=== PATIENT | male | born 1945 | race Caucasian/White ===

== ENCOUNTER 2025-03-12 | Inpatient (IN) | payer OTHER ==
[~2025-03-12] VITALS: Wt 96.4 kg
[2025-03-12 00:07] VITALS: BP 136/85
[2025-03-12] MEDS ORDERED: Polyethylene Glycol 3350 17 gm PO PRN (02:00)
[2025-03-12] MEDS ORDERED: Latanoprost 0.005% Opth Soln 2.5 ML RIGHTEYE SCH (02:00)
[2025-03-12] MEDS ORDERED: Dorzolamide/Timolol Opth Soln 10 ML RIGHTEYE SCH (02:00)
[2025-03-12] MEDS ORDERED: Polyethylene Glycol 3350 17 gm PO ONE (02:00)
--- NOTE | 2025-03-12 02:36 | NUR ---
PT WAS A DIRECT ADMIT FROM [facility] AND ARRIVED TO ROOM 364 AT 2355. OIL SEAL ASSEMBLER'S (GWENDOLYN RECINOS AND HIMANSHU TOBAR) ORIENTED PT TO ROOM AND CALL SYSTEM. PT ARRIVED W/CHEST TUBE TO L.LOBE THAT WAS TEMPORARILY OPENED TO GRAVITY BEFORE CLAMPING AGAIN UPON INSTRUCTION OF RESIDENT AND MD (). 640 MLS PURULENT NEW/YELLOW OUTPUT OBTAINED. HE WAS PLACED ON TELEMETRY AND IS NSR W/BBB AT 60'S BPM. CONT BIOX MONITORING COMMENCED AND SPO2 IS WNL ON RA. MD'S ROUNDED UPON ADMIT AND ORDERS WERE RECEIVED. ADMISSION COMPLETED BY GWENDOLYN RECINOS AND THIS RN ASSUMED CARE OF PT AT 0200. I AGREE TO HER ASSESSMENT FINDINGS AND PT IS RESTING COMFORTABLE W/O S/S DISTRESS AT THIS TIME.
[2025-03-12] MEDS ORDERED: Latanoprost 0.005% Opth Soln 2.5 ML BOTHEYES SCH (02:53)
[2025-03-12] MEDS ORDERED: Lopressor 25 mg25 MG PO (03:34)
[2025-03-12] MEDS ORDERED: ZOCOR20 MG PO (03:35)
[2025-03-12] MEDS ORDERED: LATA.005SO BOTHEYES (03:35)
[2025-03-12] MEDS ORDERED: TIMDOROPSO RIGHTEYE (03:36)
[2025-03-12] MEDS ORDERED: FURO20 PO (03:37)
[2025-03-12 04:50] VITALS: BP 113/61
[2025-03-12 04:51] LABS: BASOPHILS ABSOLUTE AUTO 0.04 K/mm3 (0.00-0.23); BASOPHILS PERCENT AUTO 0 % (0-2); EOSINOPHILS ABSOLUTE AUTO 0.05 K/mm3 (0.00-0.68); EOSINOPHILS PERCENT AUTO 0 % (0-6); Hematocrit 45.5 % (37.0-53.0); Hemoglobin 15.5 g/dL (13.5-17.5); IMMATURE GRAN ABSOLUTE AUTO 0.03 K/mm3 (0.00-0.10); IMMATURE GRAN PERCENT AUTO 0 % (0-1); LYMPHOCYTES ABSOLUTE AUTO 1.98 K/mm3 (0.84-5.20); LYMPHOCYTES PERCENT AUTO 17 % (21-46); MONOCYTES ABSOLUTE AUTO 1.15 K/mm3 (0.16-1.47); MONOCYTES PERCENT AUTO 10 % (4-13); Mean Corpuscular HGB Conc 34.1 g/dL (31.5-36.5); Mean Corpuscular Volume 96 fL (80-100); NEUTROPHILS ABSOLUTE AUTO 8.76 K/mm3 (1.96-9.15); NEUTROPHILS PERCENT AUTO 73 % (41-73); NRBC ABSOLUTE 0.00 K/mm3 (0.00-0.02); NRBC Auto 0.0 /100 WBC (0.0-0.2); Platelet Count 230 K/mm3 (150-400); RDW Coefficient Variation 12.1 % (11.7-14.2); RDW Standard Deviation 42.9 fL (35.1-46.3)
[2025-03-12 05:01] LABS: Alanine Aminotransfer (ALT/SGP 40.0 U/L (12-78); Albumin, Blood 2.8 g/dL (3.4-5.0); Albumin/Globulin Ratio 0.7 (0.8-1.8); Anion Gap 6.0 mmol/L (3-11); Aspartate Aminotrans (AST/SGOT 29.0 U/L (12-37); Bilirubin, Total 0.5 mg/dL (0.1-1.0); Blood Urea Nitrogen 21.0 mg/dL (8-24); CO2, Blood 31.0 mmol/L (21-32); Calcium, Blood 8.0 mg/dL (8.5-10.1); Chloride, Blood 109.0 mmol/L (98-108); Creatinine, Blood 0.65 mg/dL (0.60-1.20); Globulin, Blood 4.1 g/dL (2.2-4.0); Glucose, Blood 127.0 mg/dL (70-99); Potassium, Blood 3.8 mmol/L (3.5-5.5); Sodium, Blood 142.0 mmol/L (136-145); Total Protein, Blood 6.9 g/dL (6.4-8.2)
--- NOTE | 2025-03-12 07:15 | NUR ---
SUMMARY: PT A/OX4, CALLS APPROPRIATELY TO SPECIFY NEEDS AND IS PLEASANT AND COOPERATIVE W/CARE. HE ARRIVED FROM [facility] W/A CHEST TUBE PRESENT TO HIS L.LOBE PLACED FOR L.PLEURAL EFFUSION. RESIDENT TEMPORARILY OPENED TUBE TO GRAVITY AND APPROX 700 MLS YELLOW/RUST PURULENT OUTPUT WAS OBSERVED PRIOR TO CLAMPING IT AGAIN. SPECIMENS STILL NEED COLLECTED, DAY RN IS AWARE. PULM CONSULT CALLED TO ANS.SERVICE AND HOSPITALIST INSTRUCTED RN TO KEEP CHEST TUBE CLAMPED PENDING CONSULT. TYLENOL WAS RECEIVED PRN FOR TOLERABLE RELIEF OF "LUNG PAIN W/DEEP BREATHS". LS ARE ABSENT TO L.LOWER LOBE, DIMINSHED TO L.UPPER LOBE AND CLEAR T/O R.LOBES. RESPS ARE SHALLOW BUT E/U AND SPO2 IS WNL ON RA. HE'S REMAINS NSR W/BBB ON TELE AT 60'S-80'S BPM. NO ACUTE CHANGES, VSS/AFEBRILE. WILL REPORT TO DAY RN.
[2025-03-12 07:34] VITALS: BP 131/70
--- NOTE | 2025-03-12 07:56 | NUR ---
DR. MATHUR CAME BY. NOTIFIED HER THAT THE PATIENT WAS COMPLAINING OF CHEST PAIN WITH BREATHING. TOLD HER THAT THE CHEST TUBE HAS BEEN CLAMPED SINCE 29. PER DR. MATHUR TO UNCLAMP AND SUCTION WITH GRAVITY.
--- NOTE | 2025-03-12 08:14 | NUR ---
SPOKE WITH DR. MATHUR REGARDING NURSE NOTIFY FROM DR. SANDERS ABOUT KEEPING CHEST TUBE CLAMPED FOR NOW. PER DR. MATHUR WOULD LIKE TO GET A 1V CHEST XRAY PRIOR TO UNCLAMPING. XRAY ORDERED.
[2025-03-12] MEDS ORDERED: Enoxaparin 40 MG/0.4 ML SYR SC SCH (09:00)
[2025-03-12 10:15] LABS: Automated BF RBC Count 0.006 M/mm3 (0-0); Automated BF WBC Count 0.819 K/mm3 (0-999)
[2025-03-12 10:16] LABS: RBC Count, Body Fluid 6000 /mm3 (0-0)
[2025-03-12 10:33] LABS: Albumin, Body Fluid 2.6 g/dL; Glucose, Body Fluid 132 mg/dL; Lactate Dehydrogenase, Body Fl 189 U/L; Triglycerides, Body Fluid 16 mg/dL
[2025-03-12 10:34] LABS: Source, Urine Clean Catch
[2025-03-12 10:39] LABS: Color, Body Fluid Yellow (None-Yellow); Lymphocytes, Fluid 37.0 % (0.0-18.0); Monocytes/Mononuclear, Fluid 22.0 % (0.0-50.0); Neutrophils, Fluid 41.0 % (0.0-25.0); Total Cell Count, Body Fluid 100
[2025-03-12 10:40] LABS: Bilirubin, Urine Neg (Neg); Color, Urine Yellow (P-Yellow); Glucose Qualitative, Urine Neg (Neg); Ketones, Urine 1+ (Neg); Leukocyte Esterase, Urine Neg (Neg); Protein, Urine 1+ (Neg); Specific Gravity, Urine 1.020 (1.003-1.022); Urobilinogen, Urine NORM (Normal)
[2025-03-12 11:53] VITALS: BP 113/60
--- NOTE | 2025-03-12 12:32 | NUR ---
NOTIFIED DR. MATHUR OF ELEVATED BLOOD SUGAR OF 229
[2025-03-12 14:59] VITALS: BP 137/65
--- NOTE | 2025-03-12 17:17 | NUR ---
SHIFT SUMMARY: PATIENT IS A&OX4/1 PERSON/SBA. HE WAS CONSULTED BY DR. GALDAMEZ; CHEST TUBE HAS BEEN UNCLAMPED SINCE 949; 435 ML OF OUTPUT SINCE THEN. SEROSANGUINEOUS DRAINAGE. PATIENT APPEARS TO BE DOING WELL; BREATHING NOT LABORED OR PAIN AT THIS TIME. RESULTS ON FLUID SENT FROM CHEST TUBE STILL PENDING. PATIENT IN BED, ALERT, CALL LIGHT WITHIN REACH, NO SIGNS OR SYMPTOMS OF DISTRESS, PLAN OF CARE ONGOING.
[2025-03-12 20:24] VITALS: BP 144/62
[2025-03-12] MEDS ORDERED: Insulin Human Lispro 100 Units/ML 3ML Syringe SC SCH (21:00)
[2025-03-13 00:21] VITALS: BP 142/80
[2025-03-13 04:28] VITALS: BP 148/75
[2025-03-13 05:01] LABS: BASOPHILS ABSOLUTE AUTO 0.07 K/mm3 (0.00-0.23); BASOPHILS PERCENT AUTO 1 % (0-2); EOSINOPHILS ABSOLUTE AUTO 0.26 K/mm3 (0.00-0.68); EOSINOPHILS PERCENT AUTO 2 % (0-6); Hematocrit 44.7 % (37.0-53.0); Hemoglobin 14.9 g/dL (13.5-17.5); IMMATURE GRAN ABSOLUTE AUTO 0.04 K/mm3 (0.00-0.10); IMMATURE GRAN PERCENT AUTO 0 % (0-1); LYMPHOCYTES ABSOLUTE AUTO 2.43 K/mm3 (0.84-5.20); LYMPHOCYTES PERCENT AUTO 21 % (21-46); MONOCYTES ABSOLUTE AUTO 1.33 K/mm3 (0.16-1.47); MONOCYTES PERCENT AUTO 12 % (4-13); Mean Corpuscular HGB Conc 33.3 g/dL (31.5-36.5); Mean Corpuscular Volume 95 fL (80-100); NEUTROPHILS ABSOLUTE AUTO 7.29 K/mm3 (1.96-9.15); NEUTROPHILS PERCENT AUTO 64 % (41-73); NRBC ABSOLUTE 0.00 K/mm3 (0.00-0.02); NRBC Auto 0.0 /100 WBC (0.0-0.2); Platelet Count 245 K/mm3 (150-400); RDW Coefficient Variation 12.1 % (11.7-14.2); RDW Standard Deviation 42.1 fL (35.1-46.3)
--- NOTE | 2025-03-13 05:43 | NUR ---
SHIFT SUMMARY PT ALERT ORIENTED ABLE TO VERBALIZE NEEDS ABLE TO GET UP AND AMBULATE WITH 1 PERSON SBA BUT ITS VERY PAINFUL TO HIS CHEST TUBE SITE. HE DID GET UP AND SAT IN HIS CHAIR FOR A LITTLE WHILE THIS SHIFT. CHEST TUBE IS INTACT TO LT POSTERIOR SITE WITH FOAM TAPE AROUND SITE DRAINING SEROUS TO SEROSANGUINOUS DRAINAGE. HE HAD 300ML OF OUTPUT THIS SHIFT. HE REMAINS ON STRICT I&OS AND A CONTINUOUS PULSE OX. VSS SATTING AT 93% ON RA. FS DONE AC AND HS WAS 141. REMAINS ON TELEMETRY AT NSR AT 85 WITH BBB. C/O GENERAL PAIN MEDICATED WITH TYLENOL WITH GOOD PAIN RELIEF. RESTING IN BED AT THIS TIME WITH CALL LIGHT IN REACH
[2025-03-13 05:45] LABS: Alanine Aminotransfer (ALT/SGP 31.0 U/L (12-78); Albumin, Blood 2.5 g/dL (3.4-5.0); Albumin/Globulin Ratio 0.6 (0.8-1.8); Anion Gap 9.0 mmol/L (3-11); Aspartate Aminotrans (AST/SGOT 21.0 U/L (12-37); Bilirubin, Total 0.6 mg/dL (0.1-1.0); Blood Urea Nitrogen 20.0 mg/dL (8-24); CO2, Blood 29.0 mmol/L (21-32); Calcium, Blood 7.7 mg/dL (8.5-10.1); Chloride, Blood 105.0 mmol/L (98-108); Creatinine, Blood 0.71 mg/dL (0.60-1.20); Globulin, Blood 4.0 g/dL (2.2-4.0); Glucose, Blood 115.0 mg/dL (70-99); Potassium, Blood 4.1 mmol/L (3.5-5.5); Sodium, Blood 139.0 mmol/L (136-145); Total Protein, Blood 6.5 g/dL (6.4-8.2)
[2025-03-13 07:33] VITALS: BP 135/70
--- NOTE | 2025-03-13 17:12 | NUR ---
SHIFT SUMMARY: NO EVENTS OR CHANGES WITH THE PATIENT THROUGHOUT THE SHIFT. CONTINUES TO HAVE OUTPUT FROM CHEST TUBE. LATER THIS AFTERNOON DID WAKE UP FROM A NAP SLIGHTLY DISORIENTED ATTEMPTING TO GET OUT OF BED ON THE R SIDE; EVENT REPORTED TO THIS RN FROM [employer] DIGESTER [employer]PER. PATIENT ASSISTED AND WAS EASILY REORIENTED. NO SIGNS OR SYMPTOMS OF DISTRESS OR ANY ISSUES AROUSE FROM EVENT. PATIENT IN HIS BEDSIDE CHAIR, CALL LIGHT WITHIN REACH, NO SIGNS OR SYMPTOMS OF DISTRESS, PLAN OR CARE ONGOING.
[2025-03-13 19:42] VITALS: BP 106/84
[2025-03-14 05:49] VITALS: BP 139/80
--- NOTE | 2025-03-14 06:19 | NUR ---
SHIFT SUMMARY ADMITTED FOR SOB. FULL CODE. FOUND TO HAVE A LEFT PLEURAL EFFUSION. CHEST TUBE IN PLACE, LEFT SIDE - DRAINING TO GRAVITY. SEROSANGUINOUS DRAINAGE. HE IS A&O X4, ON RA, REGULAR DIET. STANDBY ASSIST - BRP. PULMONOLGY CONSULT IS DR. DENICE VALDEZ. HE IS A , BUT NOT SERVICE CONNECTED. HE LIVES WITH HIS IN [place]. NO NEW CONCERNS THIS SHIFT.
[2025-03-14 07:47] VITALS: BP 137/76
[2025-03-14 12:03] VITALS: BP 147/80
[2025-03-14 16:04] VITALS: BP 151/65
--- NOTE | 2025-03-14 17:23 | NUR ---
SHIFT SUMMARY: NO EVENTS OR CHANGES WITH THE PATIENT THROUGHOUT THE SHIFT. HE ONLY HAD 15 ML OF OUTPUT SINCE 0630 THIS MORNING. PATIENT STILL WAITING TO BE SEEN BY DR. REARDON TO DETERMINE PLAN. PATHOLOGY RESULTS CAME BACK ON THE FLUI; DR. MATHUR NOTIFIED. PATIENT EXPRESSED THE DESIRE TO STAY IN THE HOSPITAL. HE IS IN BED, SLEEPING, RESPIRATION EVEN AND UNLABORED, ROOMAIR, CALL LIGHT WITHIN REACH, NO SIGNS OR SYMPTOMS OF DISTRESS, PLAN OF CARE ONGOING.
[2025-03-14 19:09] VITALS: BP 145/66
[2025-03-15 02:37] VITALS: BP 142/78
--- NOTE | 2025-03-15 04:43 | NUR ---
SHIFT SUMMARY ADMITTED FOR SOB, LEFT PLEURAL EFFUSION. FULL CODE. CHEST TUBE IN LEFT SIDE. ON RA. STANDBY ASSIST BRP. REGULAR DIET. A&O X4. CONTINENT. [place] PATIENT. PULMONOLOGY CONSULT IS DR. DENICE VALDEZ. STRICT I&O'S. HE LIVES WITH HIS IN [place], AND IS A DIRECT ADMIT FROM THERE. NO NEW CONCERNS THIS SHIFT.
[2025-03-15 07:30] VITALS: BP 128/71
[2025-03-15 16:53] VITALS: BP 151/72
--- NOTE | 2025-03-15 16:59 | NUR ---
NOTE POLMONOLOGY CAME, REPORTED "CONT TO HAVE CHEST TUBE DRAIN IN CLOSED SYSTEM. WILL DO REPEAT CT SCAN, PT MAY BE TRANSFERED TO [facility] TO GET LUNG BIOPSY." PT CT COMPLETE. REPORTED IMPRESSION RESULTS TO DR. REARDON. DR. RERADON REPORTED "WILL COME SEE PT BEFORE END OF YOUR SHIFT REGARDING PLAN."
--- NOTE | 2025-03-15 17:02 | NUR ---
SHIFT SUMMARY PT A&OX4. PT ADMITTED DUE TO DIFF. BREATHING. CT SCAN COMPLETE TODAY. DR. REARDON CAME TO ASSESS PT. PT HAS CHEST TUBE. CHEST TUBE DRAINING ADEQUATE WITH NO DEPENDENT LOOPS, SITE IS C/D/I, CONTAINER SYSTEM, TAPED UP RIGHT ON GROUND. PT IS ACHS. INSULIN COVERED FOR LUNCH AND DINNER. PT REPORTS WEAKNESS. PT ENCOURAGED TO SPEND TIME SITTING IN CHAIR. PT EATS [place]. PT REPORTS NO PAIN/CHEST PAIN. PT ON ROOM AIR. INCENTIVE SPIROMETER AT BEDSIDE AND ENCOURAGED. PT IN BED, BED IN LOWEST POSITION, CALL LIGHT IN REACH.
[2025-03-15 19:17] VITALS: BP 151/80
[2025-03-16 03:18] VITALS: BP 121/77
--- NOTE | 2025-03-16 03:50 | NUR ---
SLAB INSPECTOR SUMMARY: PT A&O X4. NO ACUTE DISTRESS/ OR EVENTS T/O SHIFT. MEDICATED X1 PER EMAR ORDERS FOR LOW BACK PAIN. CHEST TUBE PATENT AND DRAINING. INDEPENDENT WITH BED MOBILITY. CONTINENT OF BOWEL AND BLADDER. PT PENDING D/C TO [facility] FOR BIOPSY. CALL LIGHT IN REACH. CARES ONGOING ORDERED.
[2025-03-16 07:37] VITALS: BP 147/64
[2025-03-16] MEDS ORDERED: Menthol/Methyl Salicylate Crm 85 GM TUBE TOP PRN (16:10)
[2025-03-16 16:14] VITALS: BP 134/109
[2025-03-16] MEDS ORDERED: Methyl Salicylate/Menth/Camph 57 GM TUBE TOP PRN (16:55)
[2025-03-16 17:06] VITALS: BP 134/109
[2025-03-16] MEDS ORDERED: Ketorolac Tromethamine 15mg Vial IV PRN (17:10)
--- NOTE | 2025-03-16 18:45 | NUR ---
DISCHARGE NOTE PT A&OX4. PT ADMITTED DUE TO DIFF BREATHING. PT REPORTS PAIN AT NECK AND L SIDE. PAIN MANAGED PER EMAR. CHEST TUBE DRAINING ADEQUATE WITH NO DEPENDENT LOOPS, SITE C./D/I, FOAM DRESSING INTACT. CONTAINER SYSTEM TAPED UPRIGHT ON GROUND. PT ACHS. INSULIN COVERED FOR LUNCH AND DINNER. PT REPORTS WEAKNESS. PT ENCOURAGED TO SIT IN CHAIR. PT EATS A[place]QUATE. PT REPORTS NO CHEST PAIN. PT ON ROOM AIR. CONT. PULSE OX ON. SPO2 96%. VSS. DR. REARDON CAME TO SEE PT, INITIATED COBRA TRANSFER TO [facility], IV'S INTACT INPLACE. GAVE REPORT TO RN AT [facility]. TRANSPORT CAME TO CEMETERY WORKER PT AT 1830 VIA [facility].
[2025-03-16 18:54] LABS: Prostate Specific Antigen 2.450 ng/mL (0.000-4.000)
== END 2025-03-16 18:37 | disposition short-term general hospital (02) | DRG 188 ==
LOC: MEDS
PROVIDERS: Internal Medicine; Internal Medicine Critical Care Medicine; Registered Nurse; ADMIT Student in an Organized Health Care Education/Training Program
PROC: 0W9B30Z Drainage of Left Pleural Cavity with Drainage Device, Percutaneous Approach (ICD-10-PCS; principal; 2025-03-12)
DX: J90 Pleural effusion, not elsewhere classified (principal); N40.0 Benign prostatic hyperplasia without lower urinary tract symptoms; I10 Essential (primary) hypertension; I25.10 Atherosclerotic heart disease of native coronary artery without angina pectoris; E11.9 Type 2 diabetes mellitus without complications; E78.5 Hyperlipidemia, unspecified; F17.210 Nicotine dependence, cigarettes, uncomplicated; Z95.1 Presence of aortocoronary bypass graft; Z88.5 Allergy status to narcotic agent; Z88.8 Allergy status to other drugs, medicaments and biological substances; Z91.048 Other nonmedicinal substance allergy status; Z79.899 Other long term (current) drug therapy
CPT/HCPCS: 36415; 71045; 71250; 80053; 82042; 82465; 82945; 82947; 83615; 83986; 84153; 84157; 84478; 85025; 87070; 87205; 88108; 88305; 89051; 93306; 94762; A9270; J1650; J1885